=== PATIENT | female | born 1970 | race Caucasian/White ===

== ENCOUNTER → 2023-12-14 16:39 | Outpatient (BNVA) | payer OTHER, SELFPAY | PROVIDERS: Visit Provider Emergency Medicine | DX: M25.571 Pain in right ankle and joints of right foot (principal); T84.197A Other mechanical complication of internal fixation device of bone of left lower leg, initial encounter; X58.XXXA Exposure to other specified factors, initial encounter; Z98.890 Other specified postprocedural states | CPT/HCPCS: 73610 ==